=== PATIENT | female | born 1960 | race African-American/Black ===

== ENCOUNTER 2021-01-16 10:22 | Outpatient (CLI) | payer BC, SELFPAY ==
--- NOTE | ~2021-01-16 | XR_ITS ---
EXAMINATION: XR skull <4V DATE: 01/16/2021 11:00 INDICATION: Osteoma of skull, left anterior aspect. TECHNIQUE: 3 views of the skull were obtained. COMPARISON: None. FINDINGS: Bone alignment is normal. No fracture. 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 IMPRESSION: 1. Normal skull. Reviewed, dictated and finalized at location B. IMPRESSION: 1. Normal skull.
== END 2021-01-16 10:23 | disposition home or self-care (01) ==
PROVIDERS: PCP Physician Assistant; Visit Provider Physician Assistant
DX: D16.4 Benign neoplasm of bones of skull and face (principal)
CPT/HCPCS: 70250